=== PATIENT | male | born 1970 | race Caucasian/White ===

== ENCOUNTER → 2020-02-11 | Outpatient (CLI) | payer OTHER ==
[~2020-02-11] MED LIST: AMOXICILLIN500 MG PO; CLARITIN10 MG PO; FLOMAX0.4 MG PO; LEVOFLOXACIN500 MG PO; MEDROL DOSEPAK4 MG PO; Motrin,Rufen800 MG PO; PERCOCET 325 MG1 TA2 PO; PROVENTIL0.09 MG/AC IH; VICODIN ES 7501 TAB PO; ZITHROMAX Z PA250 MG PO; ZOFRAN ODT4 MG SL
== END | disposition home or self-care (01) ==
LOC: COVID19 13:38
PROVIDERS: ATTEND Family Medicine
DX: Z20.828 Contact with and (suspected) exposure to other viral communicable diseases (principal)

== ENCOUNTER → 2020-12-28 | Outpatient (CLI) | payer OTHER | END | disposition home or self-care (01) | LOC: COVID19 15:45 | PROVIDERS: ATTEND Internal Medicine | DX: Z11.52 Encounter for screening for COVID-19 (principal) ==